=== PATIENT | female | born 1995 | race Caucasian/White ===

== ENCOUNTER 2017-10-29 20:12 | Emergency (ER) | payer OTHER ==
[~2017-10-29] VITALS: Ht 167.6 cm; Wt 54.7 kg
[2017-10-29 20:14] VITALS: BP 128/90
[2017-10-29] MEDS ORDERED: CYCLOBENZAPRINE 10 MG TABLET ONE (21:45)
[2017-10-29] MEDS ORDERED: IBUPROFEN 200 MG TABLET ONE (21:46)
[2017-10-29] MEDS ORDERED: HYDROcodone/APAP 5/325 TABLET ONE (21:46)
[2017-10-29] MEDS ORDERED: HYDROcodone/APAP 5/325 TABLET PO ONE (22:00)
[2017-10-29] MEDS ORDERED: CYCLOBENZAPRINE 10 MG TABLET PO ONE (22:00)
[2017-10-29] MEDS ORDERED: IBUPROFEN 200 MG TABLET PO ONE (22:00)
== END 2017-10-29 22:24 | disposition home or self-care (01) ==
LOC: ED 22:07
DX: S39.012A Strain of muscle, fascia and tendon of lower back, initial encounter (principal); S29.012A Strain of muscle and tendon of back wall of thorax, initial encounter; X50.0XXA Overexertion from strenuous movement or load, initial encounter; Y93.89 Activity, other specified; Y92.89 Other specified places as the place of occurrence of the external cause; Y99.8 Other external cause status
CPT/HCPCS: 99284